=== PATIENT | male | born 1940 | race Caucasian/White ===

== ENCOUNTER → 2025-04-06 | Outpatient (CLI) | payer MEDICARE ==
--- NOTE | 2025-04-06 19:25 | HMCIMG ---
EXAM: CR right Shoulder, 2 View. CLINICAL HISTORY: Incomplete rotator cuff tear or rupture of right shoulder, not specified as COMPARISON: None provided. FINDINGS: BONES: No acute fracture or aggressive appearing osseous lesion. JOINTS: No dislocation. The joint spaces are normal. SOFT TISSUES: The soft tissues are unremarkable. IMPRESSION: No acute abnormality evident on examination of the right shoulder. No acute fracture or dislocation. /[employer]
== END | disposition home or self-care (01) ==
LOC: RAH 12:26
PROVIDERS: ATTEND Physical Medicine & Rehabilitation
DX: M75.111 Incomplete rotator cuff tear or rupture of right shoulder, not specified as traumatic (principal)
CPT/HCPCS: 73030